=== PATIENT | male | born 1980 | race Caucasian/White ===

== ENCOUNTER 2018-02-15 21:32 | Emergency (ER) | payer OTHER ==
[2018-02-15] MEDS ORDERED: Acetaminophen/HYDROcodone 325-5 MG Tab PO ONE (22:05)
--- NOTE | 2018-02-15 22:05 | EDM.PDOC ---
ED HPI GENERAL MEDICAL PROBLEM - General Chief Complaint: General Stated Complaint: PT HAS INFECTION IN LT BIG TOE Time Seen by Provider: 02/15/18 21:52 - History of Present Illness INITIAL COMMENTS - FREE TEXT/NARRATIVE: HISTORY AND PHYSICAL: History of present illness: The patient is a 37-year-old male who is visiting our city and has a provider elsewhere at the ID clinic and has a history of hypertension and intermittent toe infections and presents with 2 months of left great toe pain and increased swelling to the area over the last few days. The patient says that he has had chronic issues with his toenails with malgrowth and gets infections frequently and says that this one has been very dull and low-grade and over the last few days has become more swollen and tender and he is concerned. He has a history of staph colonization and has had multiple staph infections in the past. He is seeing a senior account director at home for staph infections on his face and also complains that he had a small lesion on the right side of his chin which his drained and is currently doing better. He is also concerned about his left ear because there was some green drainage with wax and he is worried that he is infected there as well. He has no systemic complaints of fever chills nausea vomiting chest pain or shortness of breath. Review of systems: As per history of present illness and below otherwise all systems reviewed and negative. Past medical history: As per history of present illness and as reviewed below otherwise noncontributory. Surgical history: As per history of present illness and as reviewed below otherwise noncontributory. Social history: No reported history of drug or alcohol abuse. Family history: As per history of present illness and as reviewed below otherwise noncontributory. Physical exam: General: Well-developed well-nourished overweight man who is nontoxic and vital signs are noted by me HEENT: Atraumatic, normocephalic, pupils reactive, negative for conjunctival pallor or scleral icterus, mucous membranes moist, throat clear, neck supple, nontender, trachea midline. There is no cervical adenopathy, at the right chin there was a Band-Aid which was removed and there is a small area of pink erythema which is ill-defined and a small punctum which indicates the site of lesion that was drained but there is no surrounding swelling tenderness defects or crepitus. TMs are dulled bilaterally and the left external canal is somewhat inflamed with some whitish debris but no green or yellow pus is seen and there is some cerumen. There is no mastoid tenderness or redness. Lungs: Clear to auscultation, breath sounds equal bilaterally, chest nontender. Heart: S1S2, regular rate and rhythm no overt murmurs Abdomen: Soft, nondistended, nontender. NABS Pelvis: Deferred Genitourinary: Deferred. Rectal: Deferred. Extremities: Atraumatic, with full range of motion of all extremities with the exception of the left great toe. At the nailbed of the left great toe there is a little stump of nail which the patient says is all that he grows there and there is some dried blood but no pus is seen. The entire toe has minimal swelling and erythema and is tender but there is no crepitus and no streaking up the leg. The remainder of the toes are nontender and nonswollen Neurovascular unremarkable. Neuro: Awake, alert, oriented. Cranial nerves II through XII unremarkable. Cerebellum unremarkable. Motor and sensory unremarkable throughout. Exam nonfocal. Diagnostics: X-ray of left great toe Therapeutics: Hazen bactrim,bacitracin and tube gauze to the toe Impression: Left great toe infection acute on chronic, history of staph colonization, left otitis externa Definitive disposition and diagnosis as appropriate pending reevaluation and review of above. Left Toe-[place] Pain Score (Numeric/FACES): 5 - Related Data Allergies Allergy/AdvReac Type Severity Reaction Status Date / Time azithromycin Allergy Rash Verified 02/15/18 21:56 codeine Allergy Delusions Verified 02/15/18 21:56 Penicillins Allergy Rash Verified 02/15/18 21:56 shellfish derived Allergy Hives Verified 02/15/18 21:56 Home Meds: Home Meds Allopurinol [Zyloprim] 100 mg PO DAILY 02/15/18 [History] Cholecalciferol (Vitamin D3) [Vitamin D3] 1,000 unit PO DAILY 02/15/18 [History] Fish Oil/[place]-3 Fatty Acids [Fish Oil 1,000 MG] 1 gram PO DAILY 02/15/18 [ History] Furosemide 20 mg PO DAILY 02/15/18 [History] Gentamicin [Gentamicin 0.1%] 15 gm .XX ASDIRECTED 02/15/18 [History] Lisinopril 20 mg PO DAILY 02/15/18 [History] Meloxicam 15 mg PO DAILY 02/15/18 [History] atorvaSTATin Calcium [Atorvastatin Calcium] 80 mg PO DAILY 02/15/18 [History] ED ROS GENERAL - Review of Systems Review Of Systems: ROS reveals no pertinent complaints other than HPI. ED EXAM, GENERAL - Physical Exam Exam: See Below (See dictation) Course - Vital Signs Last Recorded V/S: Last Vital Signs Temp 36.3 C 02/15/18 21:51 Pulse 81 02/15/18 21:51 Resp 18 02/15/18 21:51 BP 149/79 H 02/15/18 21:51 Pulse Ox 94 L 02/15/18 21:51 - Orders/Labs/Meds Orders: Active Orders 24 hr Category Date Time Status Toes Great Toe Lt TA [CR] Stat Exams 02/15/18 22:04 Taken Meds: Medications Discontinued Medications Generic Name Dose Route Start Last Admin Trade Name Freq PRN Reason Stop Dose Admin Hydrocodone Bitart/Acetaminophen 1 tab 02/15/18 22:05 02/15/18 22:14 Hazen 325-5 Mg PO 02/15/18 22:06 1 tab ONETIME ONE Administration Bacitracin 1 dose 02/15/18 22:46 Bacitracin Oint 1 Gm TOP 02/15/18 22:47 ONETIME ONE Departure - Departure Time of Disposition: 22:47 Disposition: Home, Self-Care 01 Condition: Good Clinical Impression: Otitis externa Qualifiers: Otitis externa type: unspecified type Chronicity: acute Laterality: left Qualified Code(s): H60.502 - Unspecified acute noninfective otitis externa, left ear Cellulitis of toe Qualifiers: Laterality: left Qualified Code(s): L03.032 - Cellulitis of left toe - Discharge Information Referrals: PCP,None [Primary Care Provider] - Forms: ED Department Discharge Additional Instructions: The following information is given to patients seen in the emergency department who are being discharged to home. This information is to outline your options for follow-up care. We provide all patients seen in our emergency department with a follow-up referral. The need for follow-up, as well as the timing and circumstances, are variable depending upon the specifics of your emergency department visit. If you don't have a primary care physician on staff, we will provide you with a referral. We always advise you to contact your personal physician following an emergency department visit to inform them of the circumstance of the visit and for follow-up with them and/or the need for any referrals to a consulting specialist. The emergency department will also refer you to a specialist when appropriate. This referral assures that you have the opportunity for followup care with a specialist. All of these measure are taken in an effort to provide you with optimal care, which includes your followup. Under all circumstances we always encourage you to contact your private physician who remains a resource for coordinating your care. When calling for followup care, please make the office aware that this follow-up is from your recent emergency room visit. If for any reason you are refused follow-up, please contact the [facility] emergency department at and ask to speak to the emergency department charge nurse. Dr Merna Ellington [address] [place] [id number] Elevate the toe as much as possible and use all medications as prescribed for your ear and toe infection. If you're staying in the area please schedule follow -up with our senior consumer insights consultant using resources given to above or plan to see a senior consumer insights consultant when you return home. The infection will slowly improve but may take the full 10 days. Return to ER as needed and as discussed. You may use over-the- counter pain medications as you choose or the tramadol you have been prescribed for pain. Only take the tramadol when you are not driving or operating machinery As it may make you dizzy or drowsy. - My Orders Last 24 Hours: My Active Orders 02/15/18 22:04 Toes Great Toe Lt TA [CR] Stat - Assessment/Plan Last 24 Hours: My Active Orders 02/15/18 22:04 Toes Great Toe Lt TA [CR] Stat
[2018-02-15] MEDS ORDERED: Bacitracin Oint 1 GM U/D Packet TOP ONE (22:46)
--- NOTE | 2018-02-16 19:08 | CR ---
EXAM DATE: 02/15/18 PATIENT'S AGE: 37 Patient: SOTERO BYRD Facility: [place], [place] Site . Site : [id number] Study: XRay Extremity Left great toe [id number]/[id number] 10:38:32 PM Ordering Physician: Dragan Bermudez Final Report: INDICATION: Toenail removed TECHNIQUE: Toe radiograph 3 views left 1st COMPARISON: None FINDINGS: Bone: No acute fractures or aggressive bone lesions are identified. No evidence of osteomyelitis is seen. Joint: The metatarsophalangeal and interphalangeal joints are normal in appearance. Soft tissue: Mild soft tissue swelling is seen throughout the 1st digit with no soft tissue gas identified. No radiopaque foreign bodies are seen. IMPRESSION: 1. No evidence of osteomyelitis is seen. If there is a high clinical index of suspicion, further evaluation with contrast-enhanced MRI or dual-isotope bone scan is recommended, given their higher sensitivities. Dictated by Ed Rivera MD @ 02/15/2018 10:40:39 PM Dictated by: Ed Rivera MD @ 02/15/2018 22:40:44 (Electronic Signature) Report Signed by Proxy. OLIVIA
== END 2018-02-15 23:08 | disposition home or self-care (01) ==
LOC: MW.ED 21:32
DX: L03.032 Cellulitis of left toe (principal); H60.502 Unspecified acute noninfective otitis externa, left ear; Z88.1 Allergy status to other antibiotic agents; Z88.0 Allergy status to penicillin; Z88.5 Allergy status to narcotic agent; Z91.013 Allergy to seafood; Z79.899 Other long term (current) drug therapy
CPT/HCPCS: 73660; 99283; A9270